=== PATIENT | female | born 1960 | race Caucasian/White ===

== ENCOUNTER → 2016-11-17 | Outpatient (CLI) | payer OTHER ==
[~2016-11-17] MED LIST: ALLEGRA PO; AMITIZA8 MCG PO; ASPIRIN81 M1 PO; ASPIRIN81 M2 PO; COREG12.5 MG PO; COZAAR PO; DIOVAN HCT 3201 EACH PO; EFFEXOR75 MG PO; FLUTICASONE PRO16 GM NS; GLUCOSAMINE & C1 CAP PO; IBUPROFEN PO; MULTI-VITAMIN1 TAB PO; PRILOSEC PO; SALINE60 M1 MC; TRILIPIX135 MG PO; VIT E PO; ZETIA PO; ZOLOFT PO; ZYRTEC10 M2 PO
--- NOTE | ~2016-11-17 | MY11 ---
[facility] A Service of [facility] & [facility] RADIOLOGY TEXT RESULTS PATIENT: GABY LAGOS LOCATION: [facility] : 62 UNIT #: [id number] AGE: [address]: DEJA DURÁN MD SEX: F ORDER DR: [id number] [address] [address] [id number] O MR#: [id number] Acc #: [id number] NAME: GABY LAGOS : 1960 SEX: F STUDY DATE/TIME: 11/17/2016 11:51 UNIT: [facility] ROOM: STUDY DESCRIPTION: MY Mammogram Screening Dig [place] Attending Physician: Susannah Durán M.D. Referring Physician: Susannah Durán M.D. Ordering Physician: Susannah Durán M.D. Primary Care Physician: Susannah Durán M.D. MEDICAL IMAGING REPORT This report is preliminary unless electronic signature is present. EXAM Bilateral digital screening mammogram with CAD, 11/17/2016 HISTORY History of breast cancer in her mother at age of 46 and maternal aunt in her 40s. No personal history of breast cancer or current complaints. COMPARISON Bilateral screening mammogram 10/30/2015, 06/30/2014, 05/30/2013, 05/11/2012. FINDINGS CC and MLO views were obtained of each breast utilizing digital technique and reviewed with an FDA-approved CAD device. Heterogeneously dense fibroglandular tissue is present bilaterally which can limit sensitivity of mammography. Round marker was placed over the superior left breast denoting a skin lesion. No new nodules are identified. No architectural distortion features are evident. Benign vascular calcifications are present within each breast. No suspicious clustered microcalcifications are identified. No abnormal skin thickening or nipple retraction is evident. IMPRESSION Routine bilateral screening mammogram is recommended in 1 year. Patients over the age of 40 are entered into a reminder system with target due date for the next mammogram. A result letter will also be sent to the patient. BIRADS: 2 Benign Finding STS. [facility] A Service of [facility] & [facility] RADIOLOGY TEXT RESULTS PATIENT: GABY LAGOS LOCATION: [facility] : 62 UNIT #: [id number] AGE: [address]: DEJA DURÁN MD SEX: F ORDER DR: Dictated by... Belinad Ndiaye M.D. THIS IS AN ELECTRONICALLY VERIFIED REPORT Belinda Ndiaye M.D. at 11/18/2016 7:08 AM Mey TD: 11/17/2016 14:50 JOB #: [id number] MEDICAL IMAGING REPORT Page 1 of 1
== END | disposition home or self-care (01) ==
LOC: SMAM 11-10 10:00
DX: Z12.31 Encounter for screening mammogram for malignant neoplasm of breast (principal); Z80.3 Family history of malignant neoplasm of breast
CPT/HCPCS: G0202